=== PATIENT | male | born 1985 | race Two or more races ===

== ENCOUNTER 2025-03-29 20:13 | Emergency (ER) | payer MEDICAID, MEDICARE ==
[~2025-03-29] VITALS: Ht 193 cm; Wt 105.0 kg
[~2025-03-29 20:13] MED LIST: ALBU1.258 IN; HYDR-4902 PO
[2025-03-29 20:16] VITALS: TEMP 98
[2025-03-29] MEDS ORDERED: HYDR-4902 PO (22:33)
--- NOTE | 2025-03-29 22:34 | ED.PDOC ---
History of Present Illness(SKN HPI Comments 39-year-old male presents to ER for wound check.. Patient reports that he has had a nonhealing wound to left hip x "2 months" and presents to ER today for wound check. Notes that he followed up with an urgent care provider two days ago and was prescribed clindamycin "for a skin infection" that he has been taking as directed. He rates his current pain a 10/10. Patient presents to ER ambulatory on arrival, steady gait, in no distress with a 2 cm x 1 cm healing wound noted to left hip without any signs of infection appreciated. Denies fever, body aches, chills or any further symptoms/complaints Chief Complaint: Abscess Time Seen by MD: 20:33 Primary Care Provider: UNKNOWN History of Present Illness: Nurses Notes, Medications, Allergies Allergies: Coded Allergies: Amphetamine (Verified Allergy, Unknown, 11/26/23) Clonidine (Verified Allergy, Unknown, 11/26/23) Cortisone (Verified Allergy, Unknown, 11/26/23) Dextroamphetamine (Verified Allergy, Unknown, 11/26/23) Haloperidol (Verified Allergy, Unknown, 11/26/23) Ibuprofen (Verified Allergy, Unknown, 11/26/23) Ketorolac Tromethamine (Verified Allergy, Unknown, 11/26/23) Levetiracetam (Verified Allergy, Unknown, 11/26/23) Methocarbamol (Verified Allergy, Unknown, 11/26/23) Penicillins (Verified Allergy, Unknown, 11/26/23) Phenytoin (Verified Allergy, Unknown, 11/26/23) Prednisone (Verified Allergy, Unknown, 11/26/23) Valproic Acid (Verified Allergy, Unknown, 11/26/23) Home Meds Active Scripts Hydrocodone-Acetaminophen (Hydrocodone Bitartrate/AC 5-325 mg) 1 Tab Tab, 1 TAB PO Q6HPRN, #6 TAB 0 Refills Prov:AGNELLA VARGAS 03/29/25 Albuterol Sulfate (Albuterol Sulfate) 1.25 Mg/3 Ml Neb, 1.25 MG IN Q6HPRN PRN, #25 EA As needed for shortness of breath Prov:SAMANTHA FINN RETAIL KEY HOLDER 11/27/23 Hydrocodone-Acetaminophen (Hydrocodone Bitartrate/AC 5-325 mg) 1 Tab Tab, 1 TAB PO Q6HPRN PRN, #8 TAB as needed for severe pain Prov:SAMANTHA FINN Q RETAIL KEY HOLDER 11/27/23 Information Source: Patient Mode of Arrival: Ambulatory Past Medical History Past Medical History (Other): CHRONIC BACK PAIN Surgical History: Denies all surgeries Family History Family History: Unknown Social History Smoker: Non-Smoker Alcohol: Denies ETOH Use Drugs: Denies Drug Use Lives In: Home Constitutional: denies: chills, diaphoresis, fatigue, fever, malaise, sweats, weakness, others EENTM: denies: blurred vision, double vision, ear bleeding, ear discharge, ear drainage, ear pain, ear ringing, eye pain, eye redness, hearing loss, mouth pa in, mouth swelling, nasal discharge, nose bleeding, nose congestion, nose pain, photophobia, tearing, throat pain, throat swelling, voice changes, others Respiratory: denies: cough, hemoptysis, orthopnea, SOB at rest, shortness of breath, SOB with excertion, stridor, wheezing, others Cardiovascular: denies: chest pain, dizzy spells, diaphoresis, Dyspnea on exertion, edema, irregular heart beat, left arm pain, lightheadedness, palpitations, PND, syncope, others Gastrointestinal: denies: abdomen distended, abdominal pain, blood streaked bowels, constipated, diarrhea, dysphagia, difficulty swallowing, hematemesis, melena, nausea, poor appetite, poor fluid intake, rectal bleeding, rectal pain, vomiting, others Genitourinary: denies: burning, dysuria, flank pain, frequency, hematuria, incontinence, penile discharge, penile sore, pain, testicle pain, testicle swelling, urgency, others Neurological: denies: dizziness, fainting, headache, left sided numbness, left sided weakness, numbness, paresthesia, pre-existing deficit, right sided numbness, right sided weakness, seizure, speech problems, tingling, tremors, weakness, others Musculoskeletal: denies: back pain, gout, joint pain, joint swelling, muscle pain, muscle stiffness, neck pain, others Integumetry: reports: others (As stated in HPI) Allergic/Immunocompromised: denies: Difficulty Healing, Frequent Infections, Hives, Itching, others Hematologic/Lymphatic: denies: anemia, blood clots, easy bleeding, easy bruising, swollen glands, others Endocrine: denies: excessive hunger, excessive sweating, excessive thirst, excessive urination, flushing, intolerance to cold, intolerance to heat, unexplained weight gain, unexplained weight loss, others Psychiatric: denies: anxiety, bipolar disorder, depression, hopeless, panic disorder, schizophrenia, sleepless, suicidal, others Physical Exam General Appearance: No Apparent Distress HEENT: PERRL/EOMI Neck: Full Range of Motion, Non-Tender, Normal Respiratory: Chest Non-Tender, Lungs Clear, No Accessory Muscle Use, No Respiratory Distress, Normal Breath Sounds Cardiovascular: No Murmur, No Gallop, Regular Rate/Rhythm Breast Exam: Deferred Gastrointestinal: NOT DONE Genitalia: Deferred Pelvic: Deferred Rectal: Deferred Extremities: Normal capillary refill, Normal range of motion Neurologic: Alert, genetics physician II-XII nml as Tested, No Motor Deficits, Normal Affect, Normal Mood, No Sensory Deficits Cerebellar Function: Normal Reflexes: Normal Skin: Dry, Normal Color, Warm, Other (2 cm x 1 cm healing wound noted to left hip without any FB/signs of infection appreciated) Lymphatic: No Adenopathy Was a procedure done? Was a procedure done?: No Sedation Sedation?: No Differential Diagnosis (INTG) Differential Diagnosis: Abrasion Differential Diagnosis: Abscess Differential Diagnosis: Retained Foreign Body X-Ray, Labs, Meds, VS Vital Signs Date Time Temp Pulse Resp B/P (MAP) Pulse Ox O2 Delivery O2 Flow Rate FiO2 03/29/25 22:31 Room Air 03/29/25 20:16 98.0 107 18 100/59 98 98.0 Advised to finish clindamycin as prescribed Advised to follow up with PCP in 1-2 days Patient verbalized understanding and agreeable with current plan of care Advised to return to ER immediately if symptoms worsen Time of 1ST Reevaluation: 22:02 Reevaluation 1ST: N/A Patient Education/Counseling: Diagnosis, Treatment, Prognosis, Need For Follow Up Family Education/Counseling: No Family Present SEPSIS Sepsis Screen Date sepsis recognized/suspect: Mar 29, 2025 Time Sepsis recognized/suspect: 2022 Recent Procedure: No On Antibiotic Therapy: Yes Respiratory Rate >20: No Heart Rate >90: No Temp<36 C (96.8 F) or >38.3 C: No SBP <90 or MAP <65 mmHG: No New Acute Mental Status Change: No Is the patient on CPAP, BIPAP,: No Vital Signs Date Time Temp Pulse Resp B/P (MAP) Pulse Ox O2 Delivery O2 Flow Rate FiO2 03/29/25 22:31 Room Air 03/29/25 20:16 98.0 107 18 100/59 98 98.0 Departure 1 Departure Time of Disposition: 22:22 Impression: Primary Impression: Cellulitis of left hip Additional Impression: Visit for wound check Disposition: HOME / SELF CARE / HOMELESS Condition: Stable e-Prescriptions Hydrocodone-Acetaminophen (Hydrocodone Bitartrate/AC 5-325 mg) 1 Tab Tab 1 TAB PO Q6HPRN, #6 TAB 0 Refills Prov: ANGELLA VARGAS 03/29/25 Discharged With: Self Critical Care Note Critical Care Time?: No Stability Stability form required: No Heart Score Heart Score: Heart Score Response (Comments) Value History N/A 0 EKG N/A 0 Age N/A 0 Risk Factors N/A 0 Troponin N/A 0 Total 0 ANGELLA VARGAS Mar 29, 2025 22:34
[2025-03-29 22:42] VITALS: BP 103/70; PULSE 94; RESP 18; O2SAT 96
== END 2025-03-29 22:47 | disposition home or self-care (01) ==
LOC: ER 20:13
DX: L03.116 Cellulitis of left lower limb (principal); Z88.8 Allergy status to other drugs, medicaments and biological substances; Z88.6 Allergy status to analgesic agent; Z88.0 Allergy status to penicillin; Z79.899 Other long term (current) drug therapy

== ENCOUNTER 2025-05-04 19:49 | Emergency (ER) | payer MEDICARE, MEDICAID ==
[~2025-05-04] VITALS: Ht 193 cm; Wt 100.0 kg
--- NOTE | 2025-05-04 21:10 | ED.PDOC ---
History of Present Illness HPI Comments This is a 39 year old male presenting to the ED with chief complaint of flu-like symptoms. Patient reports that he has been experiencing a cough with associated fever and chest pain since Thursday. Patient denies any SOB, headache, chills, N/V/D, abdominal pain, or nasal congestion. Vital signs were stable at arrival Chief Complaint: Flu like Time Seen by MD: 21:09 Primary Care Provider: UNKNOWN Reviewed Notes: Nurses Notes, Medications, Allergies Allergies: Coded Allergies: Amphetamine (Verified Allergy, Unknown, 11/26/23) Clonidine (Verified Allergy, Unknown, 11/26/23) Cortisone (Verified Allergy, Unknown, 11/26/23) Dextroamphetamine (Verified Allergy, Unknown, 11/26/23) Haloperidol (Verified Allergy, Unknown, 11/26/23) Ibuprofen (Verified Allergy, Unknown, 11/26/23) Ketorolac Tromethamine (Verified Allergy, Unknown, 11/26/23) Levetiracetam (Verified Allergy, Unknown, 11/26/23) Methocarbamol (Verified Allergy, Unknown, 11/26/23) Penicillins (Verified Allergy, Unknown, 11/26/23) Phenytoin (Verified Allergy, Unknown, 11/26/23) Prednisone (Verified Allergy, Unknown, 11/26/23) Valproic Acid (Verified Allergy, Unknown, 11/26/23) Home Meds Active Scripts Hydrocodone-Acetaminophen (Hydrocodone Bitartrate/AC 5-325 mg) 1 Tab Tab, 1 TAB PO Q6HPRN, #6 TAB 0 Refills Prov:ANGELLA VARGAS 03/29/25 Albuterol Sulfate (Albuterol Sulfate) 1.25 Mg/3 Ml Neb, 1.25 MG IN Q6HPRN PRN, #25 EA As needed for shortness of breath Prov:SAMANTHA FINN Q GENERAL SURGEON 11/27/23 Hydrocodone-Acetaminophen (Hydrocodone Bitartrate/AC 5-325 mg) 1 Tab Tab, 1 TAB PO Q6HPRN PRN, #8 TAB as needed for severe pain Prov:SAMANTHA FINN GENERAL SURGEON 11/27/23 Information Source: Patient Mode of Arrival: Ambulatory Severity: Moderate Timing: Days Duration: Since onset Prehospital treatment: None Past Medical History PAST MEDICAL HISTORY: Denies Surgical History: Denies all surgeries Family History Family History: Reviewed,noncontributory to illness, Unknown Social History Smoker: Non-Smoker Alcohol: Denies ETOH Use Drugs: Denies Drug Use Lives In: Home Constitutional: reports: fever; denies: chills, diaphoresis, fatigue, malaise, sweats, weakness, others EENTM: reports: nose congestion; denies: blurred vision, double vision, ear bleeding, ear discharge, ear drainage, ear pain, ear ringing, eye pain, eye redness, hearing loss, mouth pain, mouth swelling, nasal discharge, nose bleeding, nose pain, photophobia, tearing, throat pain, throat swelling, voice changes, others Respiratory: reports: cough; denies: hemoptysis, orthopnea, SOB at rest, shortness of breath, SOB with excertion, stridor, wheezing, others Cardiovascular: reports: chest pain; denies: dizzy spells, diaphoresis, Dyspnea on exertion, edema, irregular heart beat, left arm pain, lightheadedness, palpitations, PND, syncope, others Gastrointestinal: denies: abdomen distended, abdominal pain, blood streaked bowels, constipated, diarrhea, dysphagia, difficulty swallowing, hematemesis, melena, nausea, poor appetite, poor fluid intake, rectal bleeding, rectal pain, vomiting, others Genitourinary: denies: burning, dysuria, flank pain, frequency, hematuria, incontinence, penile discharge, penile sore, pain, testicle pain, testicle swelling, urgency, others Neurological: denies: dizziness, fainting, headache, left sided numbness, left sided weakness, numbness, paresthesia, pre-existing deficit, right sided numbness, right sided weakness, seizure, speech problems, tingling, tremors, weakness, others Musculoskeletal: denies: back pain, gout, joint pain, joint swelling, muscle pain, muscle stiffness, neck pain, others Integumetry: denies: bruises, change in color, change in hair/nails, dryness, laceration, lesions, lumps, rash, wounds, others Allergic/Immunocompromised: denies: Difficulty Healing, Frequent Infections, Hives, Itching, others Hematologic/Lymphatic: denies: anemia, blood clots, easy bleeding, easy bruising, swollen glands, others Endocrine: denies: excessive hunger, excessive sweating, excessive thirst, excessive urination, flushing, intolerance to cold, intolerance to heat, unexplained weight gain, unexplained weight loss, others Psychiatric: denies: anxiety, bipolar disorder, depression, hopeless, panic disorder, schizophrenia, sleepless, suicidal, others All Other Systems: Reviewed and Negative Physical Exam General Appearance: Moderate Distress (Patient presents as a moderately ill 39-year-old male.), Normal HEENT: Normal ENT Inspection, Pharynx Normal, TMs Normal, Other (Coryza appreciated) Neck: Full Range of Motion, Non-Tender, Normal, Normal Inspection Respiratory: Chest Non-Tender, Lungs Clear, No Accessory Muscle Use, No Respiratory Distress, Normal Breath Sounds, Other (Unremarkable auscultation bilateral lung mitchell.) Cardiovascular: No Edema, No JVD, No Murmur, No Gallop, Normal Peripheral Pulses, Regular Rate/Rhythm Breast Exam: Deferred Gastrointestinal: No Organomegaly, Non Tender, No Pulsatile Mass, Normal Bowel Sounds, Soft Genitalia: Deferred Pelvic: Deferred Rectal: Deferred Extremities: No calf tenderness, Normal capillary refill, Normal inspection, Normal range of motion, Non-tender, No pedal edema Neurologic: Alert, No Motor Deficits, Normal Affect, Normal Mood, No Sensory Deficits Cerebellar Function: NOT DONE Reflexes: NOT DONE Skin: Dry, Normal Color, Warm Lymphatic: No Adenopathy Was a procedure done? Was a procedure done?: No Differential Dx Considerations may include: Influenza a/B, COVID-19, viral upper respiratory illness, pneumonia X-Ray, Labs, Meds, VS Vital Signs Date Time Temp Pulse Resp B/P (MAP) Pulse Ox O2 Delivery O2 Flow Rate FiO2 05/04/25 22:33 98.5 89 20 131/85 (100) 97 98.5 05/04/25 19:49 97.8 89 18 118/82 99 97.8 Lab Test 05/04/25 22:28 Range/Units Influenza Type A Antigen Negative Negative Influenza Type B Antigen Negative Negative SARS-CoV-2 Antigen (Rapid) Positive *A NEGATIVE X-Ray, Labs, Meds, VS Comment All studies performed the ED were evaluated by me personally. Imaging studies were unremarkable for any pneumonia, but swabs studies confirmed a COVID-19 diagnosis. Advised patient utilize Tylenol and or Motrin as needed for fever reduction and pain relief as well as good hydration and healthy nutrition throughout. Time of 1ST Reevaluation: 22:09 Reevaluation 1ST: Improved Consultation: PCP Patient Education/Counseling: Diagnosis, Treatment Family Education/Counseling: Diagnosis, Treatment, No Family Present SEPSIS Sepsis Screen Date sepsis recognized/suspect: May 04, 2025 Time Sepsis recognized/suspect: 1948 Recent Procedure: No On Antibiotic Therapy: No Respiratory Rate >20: No Heart Rate >90: No Temp<36 C (96.8 F) or >38.3 C: No SBP <90 or MAP <65 mmHG: No New Acute Mental Status Change: No Is the patient on CPAP, BIPAP,: No Physician Orders Chest Portable (05/04/25 21:02) Vital Signs Date Time Temp Pulse Resp B/P (MAP) Pulse Ox O2 Delivery O2 Flow Rate FiO2 05/04/25 22:33 98.5 89 20 131/85 (100) 97 98.5 05/04/25 19:49 97.8 89 18 118/82 99 97.8 Departure 1 Departure Time of Disposition: 23:17 Impression: Primary Impression: COVID-19 Disposition: 01 HOME / SELF CARE / HOMELESS Condition: Stable Additional Instructions: Advised Tylenol and or Motrin as needed for symptomatic fever reduction and pain relief as well as good hydration and healthy nutrition throughout. e-Prescriptions Ondansetron Odt 4MG Tab (ZOFRAN PO) 4 Mg Tb 4 MG PO Q6HP PRN, #20 TAB ODT TAB-DISSOLVE IN MOUTH, THEN SWALLOW Prov: JAMAL MANNING PAC 05/04/25 Ibuprofen Micronized (Ibuprofen) 800 Mg Tab 800 MG PO Q8HP PRN, #20 TAB Prov: JAMAL MANNING PAC 05/04/25 Acetaminophen (Acetaminophen) 500 Mg Tab 500 MG PO Q4HP PRN, #30 TAB Prov: JAMAL MANNING PAC 05/04/25 Discharged With: Self, Friend Critical Care Note Critical Care Time?: No Stability Stability form required: No Heart Score Heart Score: Heart Score Response (Comments) Value History N/A 0 EKG N/A 0 Age N/A 0 Risk Factors N/A 0 Troponin N/A 0 Total 0 I personally scribed for JAMAL MANNING PAC ([email or web address]) on 05/04/25 at 21:10. Electronically submitted by Shilo Monique ([email or web address]). JAMAL MANNING PAC May 04, 2025 21:10
[2025-05-04] MEDS: ONDANSETRON ODT 4 MG TAB PO ONE (21:15)
--- NOTE | 2025-05-04 21:30 | DVH ---
CHEST RADIOGRAPH Indication: Cough Technique: Single frontal view of the chest was obtained Comparison: XR CHEST 1 VIEW on DOS: 11/27/23, XY CHEST XRAY 1 VIEW on DOS: 11/26/23 FINDINGS: Lines and Tubes: None Lungs: No focal consolidation. Metallic densities overlying The Right upper lung zone, left medial m id lung zone , mediastinum and left upper abdominal quadrant which are most likely external to the pa tient. Pleura: No effusion. No pneumothorax. Cardiomediastinal contours: Unremarkable Bones: No acute osseous abnormality. IMPRESSION: No acute cardiopulmonary disease.
[2025-05-04 23:12] LABS: COVID19 ANTIGEN SOFIA FIA POSITIVE (NEGATIVE)
[2025-05-04] MEDS ORDERED: ACET500T58 PO (23:18)
[2025-05-04] MEDS ORDERED: ZOFR4T PO (23:18)
[2025-05-04] MEDS ORDERED: IBUP-1455 PO (23:18)
[2025-05-04 23:53] LABS: Urine Protein, UAD Negative (Negative)
[2025-05-05 00:40] VITALS: BP 121/84; PULSE 86; RESP 20; TEMP 97.9; O2SAT 98
== END 2025-05-05 00:43 | disposition home or self-care (01) ==
LOC: ER 19:51
DX: U07.1 COVID-19 (principal); Z88.0 Allergy status to penicillin; Z88.6 Allergy status to analgesic agent; Z88.8 Allergy status to other drugs, medicaments and biological substances
CPT/HCPCS: 36415; 71045; 81001; 87426; 87804; Q0162

== ENCOUNTER 2025-05-19 05:15 | Emergency (ER) | payer MEDICARE, MEDICAID ==
[~2025-05-19] VITALS: Ht 193 cm; Wt 95.0 kg
[~2025-05-19 05:15] MED LIST changes: +ACET500T58 PO; +IBUP-1455 PO; +ZOFR4T PO
[2025-05-19 05:16] VITALS: BP 136/75; PULSE 89; RESP 16; TEMP 98.3; O2SAT 98
[2025-05-19] MEDS ORDERED: CEPH500C PO (07:47)
[2025-05-19] MEDS ORDERED: HYDR-4798 PO (07:47)
--- NOTE | 2025-05-19 07:50 | ED.PDOC ---
History of Present Illness HPI Comments A 39 YEAR OLD MALE PRESENTS TO THE ED WITH COMPLAINT OF SCRATCH WOUND OF LEFT FOOT AND MEDICATION REFILL FOR PAIN MEDICINE. PATIENT STATES THAT HE HAS A SCRATCH WOUND ON HIS LEFT FOOT FOR THE PAST 3 DAYS AND IS CONCERNED THAT IT MAY BE INFECTED. PATIENT NOTES HE ALSO HAS A HISTORY OF CHRONIC LOWER BACK PAIN AND A BULGING DISC AND USUALLY TAKES NORCO 10/325 MG, BUT DOES NOT HAVE ANY OF THIS MEDICATION AT THIS TIME AND WOULD LIKE A REFILL FOR THIS PAIN MEDICATION. PATIENT DENIES SADDLE ANESTHESIA, URINARY INCONTINENCE, BOWEL INCONTINENCE, FEVER, CHILLS, SHORTNESS OF BREATH, CHEST PAIN, ABDOMINAL PAIN, NAUSEA, VOMITING, HEADACHE, OR OTHER COMPLAINTS. NO OTHER SYMPTOMS OR MODIFYING FACTORS AT THIS TIME. PATIENT IS ALERT, ORIENTED X 4, AND HAS STEADY GAIT. Chief Complaint: Lower Extremity Time Seen by MD: 06:28 Primary Care Provider: UNKNOWN Reviewed Notes: Nurses Notes, Medications, Allergies Allergies: Coded Allergies: Amphetamine (Verified Allergy, Unknown, 11/26/23) Clonidine (Verified Allergy, Unknown, 11/26/23) Cortisone (Verified Allergy, Unknown, 11/26/23) Dextroamphetamine (Verified Allergy, Unknown, 11/26/23) Haloperidol (Verified Allergy, Unknown, 11/26/23) Ibuprofen (Verified Allergy, Unknown, 11/26/23) Ketorolac Tromethamine (Verified Allergy, Unknown, 11/26/23) Levetiracetam (Verified Allergy, Unknown, 11/26/23) Methocarbamol (Verified Allergy, Unknown, 11/26/23) Penicillins (Verified Allergy, Unknown, 11/26/23) Phenytoin (Verified Allergy, Unknown, 11/26/23) Prednisone (Verified Allergy, Unknown, 11/26/23) Valproic Acid (Verified Allergy, Unknown, 11/26/23) Home Meds Active Scripts Hydrocodone-Acetaminophen (Hydrocodone Bitartrate/AC 10-325 mg) 1 Tab Tab, 1 TAB PO BID, #10 TAB Prov:JOSEPHINE BRIGHT 05/19/25 Cephalexin Monohydrate (Cephalexin) 500 Mg Cap, 1 CAP PO QID, #32 CAP Prov:JOSEPHINE BRIGHT 05/19/25 Ondansetron Odt 4MG Tab (ZOFRAN PO) 4 Mg Tb, 4 MG PO Q6HP PRN, #20 TAB ODT TAB-DISSOLVE IN MOUTH, THEN SWALLOW Prov:JAMAL MANNING PAC 05/04/25 Ibuprofen Micronized (Ibuprofen) 800 Mg Tab, 800 MG PO Q8HP PRN, #20 TAB Prov:JAMAL MANNING PAC 05/04/25 Acetaminophen (Acetaminophen) 500 Mg Tab, 500 MG PO Q4HP PRN, #30 TAB Prov:JAMAL MANNING PAC 05/04/25 Hydrocodone-Acetaminophen (Hydrocodone Bitartrate/AC 5-325 mg) 1 Tab Tab, 1 TAB PO Q6HPRN, #6 TAB 0 Refills Prov:ANGELLA VARGAS 03/29/25 Albuterol Sulfate (Albuterol Sulfate) 1.25 Mg/3 Ml Neb, 1.25 MG IN Q6HPRN PRN, #25 EA As needed for shortness of breath Prov:SAMANTHA FINN LINOLEUM PRINTER 11/27/23 Hydrocodone-Acetaminophen (Hydrocodone Bitartrate/AC 5-325 mg) 1 Tab Tab, 1 TAB PO Q6HPRN PRN, #8 TAB as needed for severe pain Prov:SAMANTHA FINN LINOLEUM PRINTER 11/27/23 Information Source: Patient Mode of Arrival: Ambulatory Severity: Moderate Timing: Days Duration: Since onset, Days Prehospital treatment: None Medication Refill: For: Pain (CHRONIC LOW BACK PAIN ), For: Other (SCRATCH WOUND OF LEFT FOOT AND CHRONIC LOWER BACK PAIN) Past Medical History PAST MEDICAL HISTORY: Anxiety, HTN, Seizures Past Medical History (Other): TOURETTE SYNDROME, NEUROPATHY, DDD OF LOWER BACK Surgical History: Denies all surgeries Family History Family History: Reviewed,noncontributory to illness Social History Smoker: Non-Smoker Alcohol: Denies ETOH Use Drugs: Denies Drug Use Lives In: Home Constitutional: denies: chills, diaphoresis, fatigue, fever, malaise, sweats, weakness, others EENTM: denies: blurred vision, double vision, ear bleeding, ear discharge, ear drainage, ear pain, ear ringing, eye pain, eye redness, hearing loss, mouth pain, mouth swelling, nasal discharge, nose bleeding, nose congestion, nose pain, photophobia, tearing, throat pain, throat swelling, voice changes, others Respiratory: denies: cough, hemoptysis, orthopnea, SOB at rest, shortness of breath, SOB with excertion, stridor, wheezing, others Cardiovascular: denies: chest pain, dizzy spells, diaphoresis, Dyspnea on exertion, edema, irregular heart beat, left arm pain, lightheadedness, palpita tions, PND, syncope, others Gastrointestinal: denies: abdomen distended, abdominal pain, blood streaked abiel wels, constipated, diarrhea, dysphagia, difficulty swallowing, hematemesis, melena, nausea, poor appetite, poor fluid intake, rectal bleeding, rectal pain, vomiting, others Genitourinary: denies: burning, dysuria, flank pain, frequency, hematuria, incontinence, penile discharge, penile sore, pain, testicle pain, testicle swelling, urgency, others Neurological: denies: dizziness, fainting, headache, left sided numbness, left sided weakness, numbness, paresthesia, pre-existing deficit, right sided numbness, right sided weakness, seizure, speech problems, tingling, tremors, weakness, others Musculoskeletal: reports: back pain (LOWER BACK), muscle pain; denies: gout, joint pain, joint swelling, muscle stiffness, neck pain, others Integumetry: reports: others (SCRATCH WOUND OF LEFT FOOT); denies: bruises, change in color, change in hair/nails, dryness, laceration, lesions, lumps, rash, wounds Allergic/Immunocompromised: denies: Difficulty Healing, Frequent Infections, H vanna, Itching, others Hematologic/Lymphatic: denies: anemia, blood clots, easy bleeding, easy bruising, swollen glands, others Endocrine: denies: excessive hunger, excessive sweating, excessive thirst, excessive urination, flushing, intolerance to cold, intolerance to heat, unexplained weight gain, unexplained weight loss, others Psychiatric: denies: anxiety, bipolar disorder, depression, hopeless, panic disorder, schizophrenia, sleepless, suicidal, others All Other Systems: Reviewed and Negative Physical Exam General Appearance: No Apparent Distress, Obese HEENT: Normal ENT Inspection, PERRL/EOMI, Pharynx Normal, TMs Normal Neck: Full Range of Motion, Non-Tender, Normal, Normal Inspection Respiratory: Chest Non-Tender, Lungs Clear, No Accessory Muscle Use, No Respiratory Distress, Normal Breath Sounds Cardiovascular: No Edema, No JVD, No Murmur, No Gallop, Normal Peripheral Pulses, Regular Rate/Rhythm Breast Exam: Deferred Gastrointestinal: No Organomegaly, Non Tender, No Pulsatile Mass, Normal Bowel Sounds, Soft Genitalia: Deferred Pelvic: Deferred Rectal: Deferred Extremities: No calf tenderness, Normal capillary refill, Normal inspection, Normal range of motion, Non-tender, No pedal edema Musculoskeletal : Location: Bilateral Extremity Location: Back Apperance: Tenderness (AND MUSCLE SPASM ON LOW BACK, NO BONY TENDERNESS, SWELLING AND DEFORMITY. 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 ) Peripheral Pulses: 2+ carotid (R), 2+ carotid (L), 2+ dorsalis pedis (R), 2+ dorsalis pedis (L) Lymphatic: No Adenopathy Was a procedure done? Was a procedure done?: No Differential Dx Considerations may include: SCRATCH WOUND OF LEFT FOOT, WOUND RECHECKED, WOUND INFECTION, HISTORY OF CHRONIC LOWER BACK PAIN, MEDICATION REFILL X-Ray, Labs, Meds, VS Vital Signs Date Time Temp Pulse Resp B/P (MAP) Pulse Ox O2 Delivery O2 Flow Rate FiO2 05/19/25 05:16 98.3 89 16 136/75 98 98.3 X-Ray, Labs, Meds, VS Comment EXTERNAL MEDICAL RECORDS REVIEWED: [NONE] INDEPENDENT HISTORIANS: [NONE] SOCIAL DETERMINANTS OF HEALTH: [NONE] LABS ORDERED: NONE REVIEWED AND INTERPRETED RESULTS: NONE IMAGING ORDERED: NONE TREATMENTS ORDERED: NONE PROCEDURES PERFORMED: NONE CRITICAL CARE TIME: NONE I HAVE DISCUSSED THE PATIENT WITH THE ATTENDING PHYSICIAN DR. PEARL AND HE AGREES WITH THE PATIENT'S PLAN OF CARE AND DISPOSITION. BASED ON HISTORY OF PRESENT ILLNESS, AND PHYSICAL EXAM, PATIENT WILL BE DISCHARGED HOME. DISCUSSED PLAN FOR DISCHARGE HOME WITH RX [KEFLEX AND NORCO 10/325 MG]. MEDICATION WARNINGS GIVEN. SHARED DECISION MAKING: PATIENT INSTRUCTED TO FOLLOW UP WITH PRIMARY CARE PROVIDER IN 1-2 DAYS FOR RE-EVALUATION OF SYMPTOMS. PATIENT VERBALIZES UNDERSTANDING TO RETURN TO ED FOR NEW OR WORSENING SYMPTOMS OR IF FOLLOW UP WITH PCP CANNOT BE OBTAINED. PATIENT FEELS COMFORTABLE GOING HOME AT THIS TIME. ALL QUESTIONS ADDRESSED AT TIME OF DISCHARGE. Time of 1ST Reevaluation: 08:02 Reevaluation 1ST: Improved Patient Education/Counseling: Diagnosis, Treatment, Need For Follow Up Family Education/Counseling: Diagnosis, Treatment, Need For Follow Up Medical Screening: No EMC Exist At This Time SEPSIS Sepsis Screen Date sepsis recognized/suspect: May 19, 2025 Time Sepsis recognized/suspect: 0519 Recent Procedure: No On Antibiotic Therapy: No Respiratory Rate >20: No Heart Rate >90: No Temp<36 C (96.8 F) or >38.3 C: No SBP <90 or MAP <65 mmHG: No New Acute Mental Status Change: No Is the patient on CPAP, BIPAP,: No Vital Signs Date Time Temp Pulse Resp B/P (MAP) Pulse Ox O2 Delivery O2 Flow Rate FiO2 05/19/25 05:16 98.3 89 16 136/75 98 98.3 Departure 1 Departure Time of Disposition: 08:10 Impression: Primary Impression: Encounter for wound re-check Additional Impressions: Acute exacerbation of chronic low back pain Encounter for medication refill Disposition: HOME / SELF CARE / HOMELESS Condition: Stable Additional Instructions: FOLLOW-UP WITH PCP IN 1 TO 2 DAYS. TAKE MEDICATIONS PRESCRIBED. RETURN TO ED FOR ANY NEW OR WORSENING SYMPTOMS. e-Prescriptions Hydrocodone-Acetaminophen (Hydrocodone Bitartrate/AC 10-325 mg) 1 Tab Tab 1 TAB PO BID, #10 TAB Prov: JOSEPHINE BRIGHT 05/19/25 Cephalexin Monohydrate (Cephalexin) 500 Mg Cap 1 CAP PO QID, #32 CAP Prov: JOSEPHINE BRIGHT 05/19/25 Discharged With: Self Critical Care Note Critical Care Time?: No Stability Stability form required: No I personally scribed for JOSEPHINE BRIGHT ([email or web address]) on 05/19/25 at 07:50. Electronically submitted by Olman Ma ([email or web address]). JOSEPHINE BRIGHT May 19, 2025 07:50
== END 2025-05-19 07:53 | disposition home or self-care (01) ==
LOC: ER 05:15
DX: G89.29 Other chronic pain (principal); F95.2 Tourette's disorder; I10 Essential (primary) hypertension; F41.9 Anxiety disorder, unspecified; Z48.00 Encounter for change or removal of nonsurgical wound dressing; Z88.8 Allergy status to other drugs, medicaments and biological substances; Z88.0 Allergy status to penicillin; Z79.891 Long term (current) use of opiate analgesic; Z76.0 Encounter for issue of repeat prescription; Z88.6 Allergy status to analgesic agent

== ENCOUNTER 2025-05-25 20:49 | Emergency (ER) | payer MEDICARE, MEDICAID ==
[~2025-05-25] VITALS: Ht 193 cm; Wt 102.8 kg
[~2025-05-25 20:49] MED LIST changes: +CEPH500C PO; +HYDR-4798 PO
--- NOTE | 2025-05-25 21:31 | ED.PDOC ---
HPI Comments 39-year-old male presented to the ER with a chief complaint of chest pain and shortness of breaths for the past day. Reports that the chest pain is across his chest, goes to the neck, his pressure and sharp in nature, associated with shortness of breath, but denies nausea/vomiting/dizziness or palpitations at this time. Also reports abdominal pain right side with and diarrhea says that he goes to the bathroom every 45 minutes-patient is on Keflex for left foot scratch wound, diarrhea was there prior to Keflex. Also says that he is diffuse stabbing pains in bilateral feet, likely neuropathic, and reports generalized tenderness. Past medical history: Toluerrette syndrome, epilepsy, neuropathic Home medications: Clonazepam, lisinopril, Keflex Patient seen and examined, patient is tachycardic but otherwise vitally stable. Bilateral lower extremities are tender to touch, reports neuropathy. Right lower quadrant tender to touch 2. Normal bowel sounds. Attestation note: Dr. Garner: I was the supervising attending for this ED encounter. Please see the resident's notes. I was available for questions and consultations. Differential diagnosis: Ddx include but not limitied to gastritis, musculoskeletal pain, radiculopathy, atypical chest pain, dissection, aneurysm, ACS, unstable angina, hiatal hernia, GERD, anxiety, costochondritis, PE, pneumothroax, neoplasm, cardiac ischemia, drug abuse, anemia. MDM: MDM: patient presented with the above HPI.---cardiac---workup was initiated. patient was found with the above mentioned diagnosis. the following medications were ordered: please refer to order lists of meds and tests obtained by myself Dr. Garner. Patient ED course and VS have been stabilized. Patient has been reassessed in the ED and remained in a stable condition. Pertinent incidental findings were discussed with the patient and/or family. Patient/family voices understanding and is agreeable with plan. Patient has been observed in the ED adequate length of time to insure improvement/stability. Escalation of care considered: Consideration of escalation to observation or admission Heart score is low. Patient was DISCHARGED home in a stable condition. All the reports of any imaging studies that were ordered by myself were reviewed by myself. Chief Complaint: Chest Pain Time Seen by MD: 20:54 Primary Care Provider: UNKNOWN Reviewed Notes: Nurses Notes, Allergies Allergies: Coded Allergies: Amphetamine (Verified Allergy, Unknown, 11/26/23) Clonidine (Verified Allergy, Unknown, 11/26/23) Cortisone (Verified Allergy, Unknown, 11/26/23) Dextroamphetamine (Verified Allergy, Unknown, 11/26/23) Haloperidol (Verified Allergy, Unknown, 11/26/23) Ibuprofen (Verified Allergy, Unknown, 11/26/23) Ketorolac Tromethamine (Verified Allergy, Unknown, 11/26/23) Levetiracetam (Verified Allergy, Unknown, 11/26/23) Methocarbamol (Verified Allergy, Unknown, 11/26/23) Penicillins (Verified Allergy, Unknown, 11/26/23) Phenytoin (Verified Allergy, Unknown, 11/26/23) Prednisone (Verified Allergy, Unknown, 11/26/23) Valproic Acid (Verified Allergy, Unknown, 11/26/23) Home Meds Active Scripts Hydrocodone-Acetaminophen (Hydrocodone Bitartrate/AC 10-325 mg) 1 Tab Tab, 1 TAB PO BID, #10 TAB Prov:JOSEPHINE BRIGHT 05/19/25 Cephalexin Monohydrate (Cephalexin) 500 Mg Cap, 1 CAP PO QID, #32 CAP Prov:JOSEPHINE BRIGHT 05/19/25 Ondansetron Odt 4MG Tab (ZOFRAN PO) 4 Mg Tb, 4 MG PO Q6HP PRN, #20 TAB ODT TAB-DISSOLVE IN MOUTH, THEN SWALLOW Prov:JAMAL MANNING PAC 05/04/25 Ibuprofen Micronized (Ibuprofen) 800 Mg Tab, 800 MG PO Q8HP PRN, #20 TAB Prov:JAMAL MANNING PAC 05/04/25 Acetaminophen (Acetaminophen) 500 Mg Tab, 500 MG PO Q4HP PRN, #30 TAB Prov:JAMAL MANNING PAC 05/04/25 Hydrocodone-Acetaminophen (Hydrocodone Bitartrate/AC 5-325 mg) 1 Tab Tab, 1 TAB PO Q6HPRN, #6 TAB 0 Refills Prov:ANGELLA VARGAS 03/29/25 Albuterol Sulfate (Albuterol Sulfate) 1.25 Mg/3 Ml Neb, 1.25 MG IN Q6HPRN PRN, #25 EA As needed for shortness of breath Prov:SAMANTHA FINN AED TRAINER 11/27/23 Hydrocodone-Acetaminophen (Hydrocodone Bitartrate/AC 5-325 mg) 1 Tab Tab, 1 TAB PO Q6HPRN PRN, #8 TAB as needed for severe pain Prov:SAMANTHA FINN AED TRAINER 11/27/23 Information Source: Patient Mode of Arrival: Ambulatory Past Medical History PAST MEDICAL HISTORY: Anxiety, HTN, Seizures Surgical History: Denies all surgeries Family History Family History: Reviewed,noncontributory to illness Social History Smoker: Non-Smoker Alcohol: Denies ETOH Use Drugs: Denies Drug Use Lives In: Home Constitutional: denies: chills, diaphoresis, fatigue, fever, malaise, sweats, weakness, others EENTM: denies: blurred vision, double vision, ear bleeding, ear discharge, ear drainage, ear pain, ear ringing, eye pain, eye redness, hearing loss, mouth pain, mouth swelling, nasal discharge, nose bleeding, nose congestion, nose cat n, photophobia, tearing, throat pain, throat swelling, voice changes, others Respiratory: reports: SOB at rest Cardiovascular: reports: chest pain Gastrointestinal: reports: abdominal pain, diarrhea Genitourinary: denies: burning, dysuria, flank pain, frequency, hematuria, i ncontinence, penile discharge, penile sore, pain, testicle pain, testicle swelling, urgency, others Neurological: denies: dizziness, fainting, headache, left sided numbness, left sided weakness, numbness, paresthesia, pre-existing deficit, right sided numbness, right sided weakness, seizure, speech problems, tingling, tremors, weakness, others Musculoskeletal: denies: back pain, gout, joint pain, joint swelling, muscle pain, muscle stiffness, neck pain, others Integumetry: reports: wounds (Left foot) Allergic/Immunocompromised: denies: Difficulty Healing, Frequent Infections, Hives, Itching, others Hematologic/Lymphatic: denies: anemia, blood clots, easy bleeding, easy bruising, swollen glands, others Endocrine: denies: excessive hunger, excessive sweating, excessive thirst, excessive urination, flushing, intolerance to cold, intolerance to heat, unexplained weight gain, unexplained weight loss, others Psychiatric: denies: anxiety, bipolar disorder, depression, hopeless, panic disorder, schizophrenia, sleepless, suicidal, others Physical Exam General Appearance: Mild Distress HEENT: Pharynx Normal Neck: NOT DONE Respiratory: No Accessory Muscle Use, No Respiratory Distress, Normal Breath Sounds Cardiovascular: No Edema, Tachycardia Breast Exam: Deferred Gastrointestinal: Normal Bowel Sounds, RLQ, Tenderness Genitalia: Deferred Pelvic: Deferred Rectal: Deferred Extremities: Calf tenderness, No pedal edema, Tender, Other (Bilateral lower extremities are tender to touch, not swollen, reports stabbing pain, baseline neuropathic.) Neurologic: NOT DONE Cerebellar Function: NOT DONE Reflexes: NOT DONE Skin: Dry Lymphatic: NOT DONE EKG EKG : Comments Sinus tachycardia Was a procedure done? Was a procedure done?: No CP Differential Dx Differential Diagnosis: Angina, Anxiety / Panic Attack, Heart Failure Differential Diagnosis: CHF, HTN Essential Differential Diagnosis: Chest Wall Pain, Gastritis X-Ray, Labs, Meds, VS Vital Signs Date Time Temp Pulse Resp B/P (MAP) Pulse Ox O2 Delivery O2 Flow Rate FiO2 05/26/25 02:22 98.5 78 18 123/74 (90) 99 98.5 05/26/25 02:22 78 18 99 Room Air* 0 21 05/26/25 00:11 93 05/25/25 22:20 65 05/25/25 21:07 90 05/25/25 20:50 97.0 105 18 120/73 97 97.0 Lab Test 05/25/25 22:26 05/25/25 21:31 Range/Units Troponin I High Sensitivity < 3 L < 3 L </=54 ng/L White Blood Count 7.5 4.4-10.8 10^3/uL Red Blood Count 5.03 4.5-5.90 10^6/uL Hemoglobin 15.1 13.5-17.5 g/dL Hematocrit 44.9 41.0-53.0 % Mean Corpuscular Volume 89.3 80.0-100.0 fL Mean Corpuscular Hemoglobin 30.1 28.0-32.0 pg Mean Corpuscular Hemoglobin Concent 33.7 32.0-36.0 g/dL Red Cell Distribution Width 15.0 H 11.8-14.3 % Platelet Count 252 140-450 10^3/uL Mean Platelet Volume 8.4 6.9-10.8 fL Neutrophils (%) (Auto) 57.8 37.0-80.0 % Lymphocytes (%) (Auto) 27.1 10.0-50.0 % Monocytes (%) (Auto) 10.4 0.0-12.0 % Eosinophils (%) (Auto) 2.9 0.0-7.0 % Basophils (%) (Auto) 1.8 0.0-2.0 % Neutrophils # (Auto) 4.3 1.6-8.6 10 ^3/uL Lymphocytes # (Auto) 2.0 0.4-5.4 10 ^3/uL Monocytes # (Auto) 0.8 0-1.3 10 ^3/uL Eosinophils # (Auto) 0.2 0-0.8 10 ^3/uL Basophils # (Auto) 0.1 0-0.2 10 ^3/uL Nucleated Red Blood Cells 0.1 % D-Dimer, Quantitative 0.47 0.0-0.49 mg/L FEU Sodium Level 143 136-145 mmol/L Potassium Level 4.3 3.5-5.1 mmol/L Chloride Level 107 98-107 mmol/L Carbon Dioxide Level 27 20-31 mmol/L Anion Gap 9 5-15 Blood Urea Nitrogen 13 9-23 mg/dL Creatinine 1.12 0.700-1.30 mg/dL Glomerular Filtration Rate Calc 85 >90 mL/min BUN/Creatinine Ratio 11.6 10.0-20.0 Serum Glucose 80 74-106 mg/dL Calcium Level 9.1 8.7-10.4 mg/dL Total Bilirubin 0.3 0.2-1.0 mg/dL Aspartate Amino Transferase (AST) 33 13-40 U/L Alanine Aminotransferase (ALT) 18 7-40 U/L Alkaline Phosphatase 90 46-116 U/L B-Type Natriuretic Peptide 1.24 0-100 pg/mL Total Protein 7.2 5.7-8.2 g/dL Albumin 4.5 3.2-4.8 g/dL Current Medications Medications (Trade) Dose Ordered Sig/Hakeem Route Start Time Stop Time Status Last Admin Acetaminophen/ Hydrocodone Bitart ([place] 5/325MG Tab) 1 tab ONCE ONCE PO 05/25/25 22:15 05/25/25 22:17 DC 05/25/25 22:[address] [address] Ph: [phone] DIAGNOSTIC IMAGING Diagnostic Imaging Report : [id number] Signed PATIENT: ANNELIESE SETH ACCT: [id number] UNIT: [id number] : 1985 LOC: ER ROOM / BED: / AGE / SEX: 39 / M ADM STATUS: REG ER SERVICE 24 ORDERING PHYSICIAN: JUANI MARKHAM RESIDENT PROCEDURE(s): ABPL - CT AB PEL WO CON-NO ORAL OR IV REASON: abdominal pain ORDER NUMBER(s): [id number], ACCESSION NUMBER(s): [id number] Exam: CT CT AB PEL WO CON-NO ORAL OR IV History: abdominal pain Comparison Study: None Technique: Multidetector spiral CT of the abdomen was performed from lung bases to pubic symphysis. Imaging was performed without IV contrast. Axial, coronal and sagittal multiplanar reformats were obtained from the axial data set by the technologist. Radiation Dose : 1. Abdomen/Pelvis: CTDIvol 24.5 mGy, DLP 1568.68 mGy*cm. Findings: Evaluation of solid organs is limited due to lack of intravenous contrast use. Assessment is further limited by beam hardening and streak artifact from arms down positioning, as well as patient motion in the lower chest and upper abdomen. Lower Chest: No acute findings. Liver: Unremarkable. Gallbladder and Biliary Tree: Unremarkable Pancreas: Moderate atrophy. Spleen: Unremarkable. Adrenal Glands: Unremarkable. Kidneys/Ureters: No urinary stone or obstruction. Bladder: Grossly unremarkable for degree of distention. Pelvic Organs: Prosthetic calcifications. Bowel: Normal caliber without wall thickening. No evidence of appendicitis. Vasculature: Unremarkable. Lymphadenopathy: No obvious adenopathy. Peritoneum: No ascites, free air, or fluid collection. Abdominal Wall: No significant hernia. Musculoskeletal: No acute findings. Partially healed fractures of the left anterior 5th-8th ribs. IMPRESSION: No acute abdominopelvic abnormality, evidence of urinary stone or obstruction within the exam limitations. Radiation optimization: All CT scans at this facility use at least one of these dose optimization techniques: automated exposure control mA and/or kV adjustment per patient size (includes targeted exams where dose is matched to clinical indication) or iterative reconstruction. ATED BY: KAREN SHAH MD DICTATED DATE/TIME: 05/25/252311 SIGNED BY: KAREN SHAH MD SIGNED DATE/TIME: 05/25/252311 CC: [place] [address] Ph: [phone] DIAGNOSTIC IMAGING Diagnostic Imaging Report : [id number] Signed PATIENT: ANNELIESE SETH ACCT: [id number] UNIT: [id number] : 1985 LOC: ER ROOM / BED: / AGE / SEX: 39 / M ADM STATUS: REG ER SERVICE 21 ORDERING PHYSICIAN: IVY GARNER DO PROCEDURE(s): CXRP - CHEST PORTABLE REASON: cp/sob ORDER NUMBER(s): [id number], ACCESSION NUMBER(s): [id number] CLINICAL HISTORY: cp/sob TECHNIQUE: Single view of the chest was obtained. COMPARISON: XY CHEST PORTABLE on DOS: 05/04/25, XR CHEST 1 VIEW on DOS: 11/27/23, XY CHEST XRAY 1 VIEW on DOS: 11/26/23 FINDINGS: The heart size and pulmonary vasculature are normal. The lungs are clear. IMPRESSION: NO ACUTE CARDIOPULMONARY PROCESS. ATED BY: ROSLYN HUMMEL MD DICTATED DATE/TIME: 05/25/252217 SIGNED BY: ROSLYN HUMMEL MD SIGNED DATE/TIME: 05/25/252217 CC: X-Ray, Labs, Meds, VS Comment Chest x-ray shows NO ACUTE CARDIOPULMONARY PROCESS. CT abdomen shows No acute abdominopelvic abnormality, evidence of urinary stone or obstruction within the exam limitations. Images Reviewed?: Images reviewed and evaluated by me Time of 1ST Reevaluation: 00:00 Reevaluation 1ST: Improved (Chest pain has improved, workup has been negative including troponins, serial EKGs and chest x-ray) Consultation: PCP Patient Education/Counseling: Diagnosis, Treatment Family Education/Counseling: No Family Present Comments MDM: patient presented with the above HPI.---cardiac---workup was initiated. patient was found with the above mentioned diagnosis. the following medications were ordered: please refer to order lists of meds and tests obtained by myself Dr. Garner. Patient ED course and VS have been stabilized. Patient has been reassessed in the ED and remained in a stable condition. Pertinent incidental findings were discussed with the patient and/or family. Patient/family voices understanding and is agreeable with plan. Patient has been observed in the ED adequate length of time to insure improvement/stability. Escalation of care considered: Consideration of escalation to observation or admission Heart score is low Patient was DISCHARGED home in a stable condition. All the reports of any imaging studies that were ordered by myself were reviewed by myself. SEPSIS Sepsis Screen Date sepsis recognized/suspect: May 25, 2025 Time Sepsis recognized/suspect: 2102 Recent Procedure: No On Antibiotic Therapy: No Respiratory Rate >20: No Heart Rate >90: No Temp<36 C (96.8 F) or >38.3 C: No SBP <90 or MAP <65 mmHG: No New Acute Mental Status Change: No Is the patient on CPAP, BIPAP,: No Physician Orders Rope Twisting Machine Operator (05/25/25 ) Chest Portable (05/25/25 21:22) Ct Ab Pel Wo Con-No Oral Or Iv (05/25/25 22:25) Vital Signs Date Time Temp Pulse Resp B/P (MAP) Pulse Ox O2 Delivery O2 Flow Rate FiO2 05/26/25 02:22 98.5 78 18 123/74 (90) 99 98.5 05/26/25 02:22 78 18 99 Room Air* 0 21 05/26/25 00:11 93 05/25/25 22:20 65 05/25/25 21:07 90 05/25/25 20:50 97.0 105 18 120/73 97 97.0 Laboratory Tests Test 05/25/25 21:31 White Blood Count 7.5 10^3/uL (4.4-10.8) Medications Medications Dose Ordered Sig/Hakeem Route Start Time Stop Time Status Last Admin Dose Admin Acetaminophen/ Hydrocodone Bitart 1 tab ONCE ONCE PO 05/25/25 22:15 05/25/25 22:17 DC 05/25/25 22:57 Departure 1 Departure Time of Disposition: 00:03 Impression: Primary Impression: Chest pain Disposition: 01 HOME / SELF CARE / HOMELESS Condition: Stable Additional Instructions: Additional instructions: Please read all instructions provided in this packet carefully. You MUST follow-up with your primary care/family doctor in 1 to 2 days. If you are unable to see your primary care/family doctor, please return to our emergency room for re-assessment and re-evaluation in 1 to 2 days. Return to the emergency room here in our facility or to the nearest ER [facility] if your symptoms change or worsen. CONSULTATIONS: you MUST Follow-up for consultation as soon as possible with: cardiology and gastroenterology in 1-2 days. Please call for appointment. You MUST call the consultants office yourself to make an appointment. You may need to arrange that through your insurance and/or your primary/family doctor. If you are unable to see the senior information security consultant in 1 to 2 days, you must return to our emergency room (or any other ER of your choice) for re-assessment and re- evaluation. Adequate fluid hydration. Although you have been discharged from the Emergency Department, this does not mean that you have a "clean bill of health". No definitive diagnosis for your symptoms has been made today. It is possible that you are in the process of developing a serious illness. This is why you must return to the ED without fail if any new or worsening symptoms develop. Below is a copy of your radiological report for follow up: [place] [address] Ph: [phone] DIAGNOSTIC IMAGING Diagnostic Imaging Report : [id number] Signed PATIENT: ANNELIESE SETH ACCT: [id number] UNIT: [id number] : 1985 LOC: ER ROOM / BED: / AGE / SEX: 39 / M ADM STATUS: REG ER SERVICE 21 ORDERING PHYSICIAN: IVY GARNER DO PROCEDURE(s): CXRP - CHEST PORTABLE REASON: cp/sob ORDER NUMBER(s): [id number], ACCESSION NUMBER(s): [id number] CLINICAL HISTORY: cp/sob TECHNIQUE: Single view of the chest was obtained. COMPARISON: XY CHEST PORTABLE on DOS: 05/04/25, XR CHEST 1 VIEW on DOS: 11/27/23, XY CHEST XRAY 1 VIEW on DOS: 11/26/23 FINDINGS: The heart size and pulmonary vasculature are normal. The lungs are clear. IMPRESSION: NO ACUTE CARDIOPULMONARY PROCESS. ATED BY: ROSLYN HUMMEL MD DICTATED DATE/TIME: 05/25/252217 SIGNED BY: ROSLYN HUMMEL MD SIGNED DATE/TIME: 05/25/252217 CC: [address] [address] Ph: [phone] DIAGNOSTIC IMAGING Diagnostic Imaging Report : [id number] Signed PATIENT: ANNELIESE SETH ACCT: [id number] UNIT: [id number] : 1985 LOC: ER ROOM / BED: / AGE / SEX: 39 / M ADM STATUS: REG ER SERVICE 24 ORDERING PHYSICIAN: JUANI MARKHAM RESIDENT PROCEDURE(s): ABPL - CT AB PEL WO CON-NO ORAL OR IV REASON: abdominal pain ORDER NUMBER(s): [id number], ACCESSION NUMBER(s): [id number] Exam: CT CT AB PEL WO CON-NO ORAL OR IV History: abdominal pain Comparison Study: None Technique: Multidetector spiral CT of the abdomen was performed from lung bases to pubic symphysis. Imaging was performed without IV contrast. Axial, coronal and sagittal multiplanar reformats were obtained from the axial data set by the technologist. Radiation Dose : 1. Abdomen/Pelvis: CTDIvol 24.5 mGy, DLP 1568.68 mGy*cm. Findings: Evaluation of solid organs is limited due to lack of intravenous contrast use. Assessment is further limited by beam hardening and streak artifact from arms down positioning, as well as patient motion in the lower chest and upper abdomen. Lower Chest: No acute findings. Liver: Unremarkable. Gallbladder and Biliary Tree: Unremarkable Pancreas: Moderate atrophy. Spleen: Unremarkable. Adrenal Glands: Unremarkable. Kidneys/Ureters: No urinary stone or obstruction. Bladder: Grossly unremarkable for degree of distention. Pelvic Organs: Prosthetic calcifications. Bowel: Normal caliber without wall thickening. No evidence of appendicitis. Vasculature: Unremarkable. Lymphadenopathy: No obvious adenopathy. Peritoneum: No ascites, free air, or fluid collection. Abdominal Wall: No significant hernia. Musculoskeletal: No acute findings. Partially healed fractures of the left anterior 5th-8th ribs. IMPRESSION: No acute abdominopelvic abnormality, evidence of urinary stone or obstruction within the exam limitations. Radiation optimization: All CT scans at this facility use at least one of these dose optimization techniques: automated exposure control mA and/or kV adjustment per patient size (includes targeted exams where dose is matched to clinical indication) or iterative reconstruction. ATED BY: KAREN SHAH MD DICTATED DATE/TIME: 05/25/252311 SIGNED BY: KAREN SHAH MD SIGNED DATE/TIME: 05/25/252311 CC: Discharged With: Self Critical Care Note Critical Care Time?: No Stability Stability form required: No Heart Score Heart Score: Heart Score Response (Comments) Value History Slightly Suspicious 0 EKG Normal 0 Age <45 0 Risk Factors 1 or 2 risk factors 1 Troponin Normal limit 0 Total 1 I personally scribed for IVY GARNER DO ([email or web address]) on 05/26/25 at 00:06. Electronically submitted by Jordy Waddell ([email or web address]). JUANI MARKHAM RESIDENT May 25, 2025 21:31 IVY GARNER DO May 26, 2025 00:04
[2025-05-25 21:49] LABS: Hematocrit 44.9 % (41.0-53.0); Hemoglobin 15.1 g/dL (13.5-17.5); Mean Corpuscular Hemoglobin 30.1 pg (28.0-32.0); Mean Corpuscular Volume 89.3 fL (80.0-100.0); Nucleated Red Blood Cells % 0.1 %
[2025-05-25 22:02] LABS: Alanine Aminotransferase 18 U/L (7-40); Albumin 4.5 g/dL (3.2-4.8); Alkaline Phosphatase 90 U/L (46-116); Anion Gap 9 (5-15); BUN/Creatinine Ratio 11.6 (10.0-20.0); Blood Urea Nitrogen 13 mg/dL (9-23); Calcium 9.1 mg/dL (8.7-10.4); Carbon Dioxide 27 mmol/L (20-31); Chloride 107 mmol/L (98-107); Glucose 80 mg/dL (74-106); Potassium 4.3 mmol/L (3.5-5.1); Sodium 143 mmol/L (136-145); Total Protein 7.2 g/dL (5.7-8.2)
[2025-05-25 22:05] LABS: Bilirubin, Total 0.3 mg/dL (0.2-1.0)
--- NOTE | 2025-05-25 22:21 | DVH ---
CLINICAL HISTORY: cp/sob TECHNIQUE: Single view of the chest was obtained. COMPARISON: XY CHEST PORTABLE on DOS: 05/04/25, XR CHEST 1 VIEW on DOS: 11/27/23, XY CHEST XRAY 1 VIEW on DOS: 11/26/23 FINDINGS: The heart size and pulmonary vasculature are normal. The lungs are clear. IMPRESSION: NO ACUTE CARDIOPULMONARY PROCESS.
--- NOTE | 2025-05-25 22:30 | ECG ---
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
[2025-05-25] MEDS: HYDROcodone-ACET 5/325MG TAB PO ONE (22:57)
--- NOTE | 2025-05-25 23:15 | DVH ---
Exam: CT CT AB PEL WO CON-NO ORAL OR IV History: abdominal pain Comparison Study: None Technique: Multidetector spiral CT of the abdomen was performed from lung bases to pubic symphysis. I maging was performed without IV contrast. Axial, coronal and sagittal multiplanar reformats were obta ined from the axial data set by the technologist. Radiation Dose : 1. Abdomen/Pelvis: CTDIvol 24.5 mGy, DLP 1568.68 mGy*cm. Findings: Evaluation of solid organs is limited due to lack of intravenous contrast use. Assessment is further limited by beam hardening and streak artifact from arms down positioning, as well as patient motion i n the lower chest and upper abdomen. Lower Chest: No acute findings. Liver: Unremarkable. Gallbladder and Biliary Tree: Unremarkable Pancreas: Moderate atrophy. Spleen: Unremarkable. Adrenal Glands: Unremarkable. Kidneys/Ureters: No urinary stone or obstruction. Bladder: Grossly unremarkable for degree of distention. Pelvic Organs: Prosthetic calcifications. Bowel: Normal caliber without wall thickening. No evidence of appendicitis. Vasculature: Unremarkable. Lymphadenopathy: No obvious adenopathy. Peritoneum: No ascites, free air, or fluid collection. Abdominal Wall: No significant hernia. Musculoskeletal: No acute findings. Partially healed fractures of the left anterior 5th-8th ribs. IMPRESSION: No acute abdominopelvic abnormality, evidence of urinary stone or obstruction within the exam limitat ions. Radiation optimization: All CT scans at this facility use at least one of these dose optimization ezra hniques: automated exposure control mA and/or kV adjustment per patient size (includes targeted exam s where dose is matched to clinical indication) or iterative reconstruction.
--- NOTE | 2025-05-26 00:15 | ECG ---
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
[2025-05-26 02:22] VITALS: BP 123/74; PULSE 78; RESP 18; TEMP 98.5; O2SAT 99
[2025-05-26] MEDS ORDERED: BACDST PO (23:14)
[2025-05-26] MEDS ORDERED: ALBU108A5 IN (23:14)
== END 2025-05-26 02:42 | disposition home or self-care (01) ==
LOC: ER 20:49
DX: R07.89 Other chest pain (principal); F41.9 Anxiety disorder, unspecified; I10 Essential (primary) hypertension; Z79.899 Other long term (current) drug therapy; Z88.8 Allergy status to other drugs, medicaments and biological substances; Z88.6 Allergy status to analgesic agent; Z88.0 Allergy status to penicillin; Z79.891 Long term (current) use of opiate analgesic
CPT/HCPCS: 36415; 71045; 74176; 80053; 83880; 84484; 85025; 85379; 93005

== ENCOUNTER 2025-05-26 20:43 | Emergency (ER) | payer MEDICARE, MEDICAID ==
[~2025-05-26] VITALS: Ht 193 cm; Wt 105.6 kg
[2025-05-26] MEDS: IPRATROPIUM BROM 0.5 MG/2.5ML INH SOL NEB ONE (22:16)
[2025-05-26] MEDS: ALBUTEROL SULF 2.5 MG/0.5ML(0.5%) NEB SOLN NEB ONE (22:16)
[2025-05-26] MEDS ORDERED: BACDST PO (23:14)
[2025-05-26] MEDS ORDERED: ALBU108A5 IN (23:14)
--- NOTE | 2025-05-26 23:14 | ED.PDOC ---
Musculoskeletal HPI Comments This patient is a 39-year-old male who arrives the ED today for evaluation of continued chest pain as well as bilateral lower extremity concerns. Patient was seen this facility yesterday and hand extensive workout including a CT of the abdomen and pelvis with contrast, chest x-ray and extensive laboratories. All studies were unremarkable. Patient returns today continuing to complain of chest discomfort. Advised patient to follow up with the primary care, but patient states he does not have a primary care provider. Vital signs were stable on arrival. Chief Complaint: Lower Extremity Time Seen by MD: 21:11 Primary Care Provider: UNKNOWN Reviewed Notes: Nurses Notes Allergies: Coded Allergies: Amphetamine (Verified Allergy, Unknown, 11/26/23) Clonidine (Verified Allergy, Unknown, 11/26/23) Cortisone (Verified Allergy, Unknown, 11/26/23) Dextroamphetamine (Verified Allergy, Unknown, 11/26/23) Haloperidol (Verified Allergy, Unknown, 11/26/23) Ibuprofen (Verified Allergy, Unknown, 11/26/23) Ketorolac Tromethamine (Verified Allergy, Unknown, 11/26/23) Levetiracetam (Verified Allergy, Unknown, 11/26/23) Methocarbamol (Verified Allergy, Unknown, 11/26/23) Penicillins (Verified Allergy, Unknown, 11/26/23) Phenytoin (Verified Allergy, Unknown, 11/26/23) Prednisone (Verified Allergy, Unknown, 11/26/23) Valproic Acid (Verified Allergy, Unknown, 11/26/23) Home Meds Active Scripts Hydrocodone-Acetaminophen (Hydrocodone Bitartrate/AC 10-325 mg) 1 Tab Tab, 1 TAB PO BID, #10 TAB Prov:JOSEPHINE BRIGHT 05/19/25 Cephalexin Monohydrate (Cephalexin) 500 Mg Cap, 1 CAP PO QID, #32 CAP Prov:JOSEPHINE BRIGHT 05/19/25 Ondansetron Odt 4MG Tab (ZOFRAN PO) 4 Mg Tb, 4 MG PO Q6HP PRN, #20 TAB ODT TAB-DISSOLVE IN MOUTH, THEN SWALLOW Prov:JAMAL MANNING PAC 05/04/25 Ibuprofen Micronized (Ibuprofen) 800 Mg Tab, 800 MG PO Q8HP PRN, #20 TAB Prov:JAMAL MANNING PAC 9/18/25 Acetaminophen (Acetaminophen) 500 Mg Tab, 500 MG PO Q4HP PRN, #30 TAB Prov:JAMAL MANNING PAC 05/04/25 Hydrocodone-Acetaminophen (Hydrocodone Bitartrate/AC 5-325 mg) 1 Tab Tab, 1 TAB PO Q6HPRN, #6 TAB 0 Refills Prov:ANGELLA VARGAS 03/29/25 Albuterol Sulfate (Albuterol Sulfate) 1.25 Mg/3 Ml Neb, 1.25 MG IN Q6HPRN PRN, #25 EA As needed for shortness of breath Prov:SAMANTHA FINN COMPLIANCE SPECIALIST 11/27/23 Hydrocodone-Acetaminophen (Hydrocodone Bitartrate/AC 5-325 mg) 1 Tab Tab, 1 TAB PO Q6HPRN PRN, #8 TAB as needed for severe pain Prov:SAMANTHA FINN COMPLIANCE SPECIALIST 11/27/23 Information Source: Patient Mode of Arrival: Ambulatory Location: Bilateral Extremity Location: Foot Timing: Days Prehospital treatment: Treatment Severity: Moderate Able to Move Extremity: Yes Bear Weight: Limited Pain: Moderate Hand Dominance: Right Mechanism: Spontaneous Circumstances: Spontaneous Onset of Symptoms: Spontaneous Symptoms: Pain DVT Risk Factors: NONE Past Medical History PAST MEDICAL HISTORY: Anxiety, HTN, Seizures Surgical History: Denies all surgeries Family History Family History: Reviewed,noncontributory to illness Social History Smoker: Non-Smoker Alcohol: Denies ETOH Use Drugs: Denies Drug Use Lives In: Home Constitutional: denies: chills, diaphoresis, fatigue, fever, malaise, sweats, weakness, others EENTM: denies: blurred vision, double vision, ear bleeding, ear discharge, ear drainage, ear pain, ear ringing, eye pain, eye redness, hearing loss, mouth pain, mouth swelling, nasal discharge, nose bleeding, nose congestion, nose pain, photophobia, tearing, throat pain, throat swelling, voice changes, others Respiratory: reports: shortness of breath; denies: cough, hemoptysis, orthopnea, SOB at rest, SOB with excertion, stridor, wheezing, others Cardiovascular: denies: chest pain, dizzy spells, diaphoresis, Dyspnea on ex ertion, edema, irregular heart beat, left arm pain, lightheadedness, palpitations, PND, syncope, others Gastrointestinal: denies: abdomen distended, abdominal pain, blood streaked bowels, constipated, diarrhea, dysphagia, difficulty swallowing, hematemesis, melena, nausea, poor appetite, poor fluid intake, rectal bleeding, rectal pain, vomiting, others Genitourinary: denies: burning, dysuria, flank pain, frequency, hematuria, incontinence, penile discharge, penile sore, pain, testicle pain, testicle swelling, urgency, others Neurological: denies: dizziness, fainting, headache, left sided numbness, left sided weakness, numbness, paresthesia, pre-existing deficit, right sided numbness, right sided weakness, seizure, speech problems, tingling, tremors, weakness, others Musculoskeletal: reports: others (Bilateral lower extremity pain); denies: back pain, gout, joint pain, joint swelling, muscle pain, muscle stiffness, neck pain Integumetry: denies: bruises, change in color, change in hair/nails, dryness, laceration, lesions, lumps, rash, wounds, others Allergic/Immunocompromised: denies: Difficulty Healing, Frequent Infections, Hives, Itching, others Hematologic/Lymphatic: denies: anemia, blood clots, easy bleeding, easy bruising, swollen glands, others Endocrine: denies: excessive hunger, excessive sweating, excessive thirst, excessive urination, flushing, intolerance to cold, intolerance to heat, unexplained weight gain, unexplained weight loss, others Psychiatric: denies: anxiety, bipolar disorder, depression, hopeless, panic disorder, schizophrenia, sleepless, suicidal, others Physical Exam General Appearance: Moderate Distress (Moderate distress due to shortness a breath concerns and bilateral foot pain.), Normal HEENT: Normal ENT Inspection, Pharynx Normal, TMs Normal Neck: Full Range of Motion, Non-Tender, Normal, Normal Inspection Respiratory: Chest Non-Tender, Lungs Clear, No Accessory Muscle Use, No Respiratory Distress, Normal Breath Sounds, Other (Unremarkable auscultation bilateral lung mitchell.) Cardiovascular: No Edema, No JVD, No Murmur, No Gallop, Normal Peripheral Pulses, Regular Rate/Rhythm Breast Exam: Deferred Gastrointestinal: No Organomegaly, Non Tender, No Pulsatile Mass, Normal Bowel Sounds, Soft Genitalia: Deferred Pelvic: Deferred Rectal: Deferred Extremities: Other (Patient reveals some mild erythema and some self-induced excoriation due to itching on bilateral feet. No edema.) Neurologic: Alert Cerebellar Function: NOT DONE Reflexes: NOT DONE Skin: Dry, Normal Color, Warm Lymphatic: No Adenopathy Was a procedure done? Was a procedure done?: No Differential Diagnosis EXT Differential Diagnosis: Cellulitis, Other (Shortness a breath, asthma) X-Ray, Labs, Meds, VS Vital Signs Date Time Temp Pulse Resp B/P (MAP) Pulse Ox O2 Delivery O2 Flow Rate FiO2 05/26/25 22:16 20 98 Room Air* 0 21 05/26/25 20:44 97.3 100 16 135/87 97 97.3 Current Medications Medications (Trade) Dose Ordered Sig/Hakeem Route Start Time Stop Time Status Last Admin Albuterol (Ventolin Medneb) 5 mg ONCE ONCE NEB 05/26/25 22:15 05/26/25 22:16 DC 05/26/25 22:16 Ipratropium [place] (Atrovent Medneb) 0.5 mg ONCE ONCE NEB 05/26/25 22:15 05/26/25 22:16 DC 05/26/25 22:16 X-Ray, Labs, Meds, VS Comment Spent extensive time discussing the patient's concerns with him. Advised that I will change his antibiotic treatment for his bilateral foot concerns. Patient received a breathing treatment prior to discharge. Advised patient to follow up with the our urgent care center as needed for management until a primary care provider can be established. Time of 1ST Reevaluation: 23:12 Reevaluation 1ST: Improved Consultation: PCP Patient Education/Counseling: Diagnosis, Treatment Family Education/Counseling: Diagnosis, Treatment Sepsis Recent Procedure: No On Antibiotic Therapy: No Respiratory Rate >20: No Heart Rate >90: No Temp<36 C (96.8 F) or >38.3 C: No SBP <90 or MAP <65 mmHG: No New Acute Mental Status Change: No Is the patient on CPAP, BIPAP,: No IV fluid given: No Departure 1 Departure Time of Disposition: 23:12 Impression: Primary Impression: Shortness of breath Additional Impression: Skin infection Disposition: 01 HOME / SELF CARE / HOMELESS Condition: Stable Additional Instructions: Advised patient utilize antibiotics as directed until completion. Advised rescue inhaler as needed for symptomatic relief. Patient can follow up with the our urgent care facility until a primary care provider can be established. e-Prescriptions Albuterol Sulfate (Albuterol Sulfate Hfa) 108 Mcg/Act Aer 108 MCG IN Q4HP PRN, #1 AER Prov: JAMAL MANNING PAC 05/26/25 Sulfamethoxazole W/Trimethopri (Bactrim Ds Tablet) 1 Tab Tb 1 TAB PO BID for 7 Days, #14 TAB Prov: JAMAL MANNING PAC 05/26/25 Discharged With: Self, Friend Critical Care Note Critical Care Time?: No Stability Stability form required: No Heart Score Heart Score: Heart Score Response (Comments) Value History N/A 0 EKG N/A 0 Age N/A 0 Risk Factors N/A 0 Troponin N/A 0 Total 0 JAMAL MANNING PAC May 26, 2025 23:14
[2025-05-27 00:04] VITALS: BP 104/75; PULSE 80; RESP 18; TEMP 98.8; O2SAT 99
--- NOTE | 2025-06-01 09:05 | ECG ---
[facility] Test Date: 2025-05-25 Test Time: 21:07:43 Pat Name: ANNELIESE SETH Department: ED Room: Gender: M N[employer] Player: ANGY : 1985 Requested By: JAMAL MANNING Order Number: [id number] Reading MD: Loyd Weiss Measurements Intervals [place] Rate: 90 P: 25 ME: 159 QRS: 49 QRSD: 85 T: 48 QT: 363 QTc: 444 Interpretive Statements Sinus rhythm Probable left atrial enlargement Low voltage, precordial leads Baseline wander in lead(s) V1 Electronically Signed On 06-03-2025 18:34:26 PDT by Loyd Weiss Please click the below link to view image of tracing.
== END 2025-05-27 00:07 | disposition home or self-care (01) ==
LOC: ER 20:43
DX: L08.9 Local infection of the skin and subcutaneous tissue, unspecified (principal); R06.02 Shortness of breath; I10 Essential (primary) hypertension; F41.9 Anxiety disorder, unspecified; Z88.0 Allergy status to penicillin; Z88.6 Allergy status to analgesic agent; Z88.8 Allergy status to other drugs, medicaments and biological substances
CPT/HCPCS: 93005; 94640